=== PATIENT | male | born 1990 | race Two or more races ===

== ENCOUNTER 2020-10-12 14:19 | Emergency (ER) | payer SELFPAY ==
[~2020-10-12] VITALS: Ht 157.5 cm; Wt 88.0 kg
[2020-10-12 18:22] VITALS: BP 153/82
--- NOTE | 2020-10-12 19:24 | PHYS DOC ---
Past Medical History Past Medical History: No Pertinent History Past Surgical History: No Surgical History Smoking Status: Never Smoker Alcohol Use: None Drug Use: None General Adult EDM: Chief Complaint: FOOT INJURY PAIN Problems: (1) Left foot pain HPI: HPI: 30-year-old male presents to the emergency department with 11 days of left foot pain after a fall off a roof while he was working on the roof 11 days ago while he was in [facility]. He was evaluated in an emergency department in [place] and was diagnosed with a broken foot. He states his pain is continued today without any further trauma or injuries reported. He was given a cam boot but did not have it on him he has been mobilizing with crutches. Denies any further complaints or trauma. The patient denies nausea, vomiting, fever, chills, chest pain, shortness of breath, abdominal pain, urinary symptoms, cough, or any other complaints. Review of Systems: Review of Systems: Review of systems is otherwise negative except for what was mentioned in the HPI Heart Score: C/O Chest Pain: No Physical Exam: PE: Constitutional: No acute distress, non-toxic appearance. HENT: Atraumatic, bilateral external ears normal, nose normal. Eyes: PERRLA, EOMI, conjunctiva normal, no discharge. Neck: Normal range of motion, supple, no stridor. Cardiovascular: Heart rate regular rhythm. 2+ dorsalis pedis pulses Lungs & Thorax: No respiratory distress, symmetrical expansion. Bilateral breath sounds clear to auscultation Abdomen: Soft, no tenderness Back: There is no CT or L spinal tenderness paravertebral lumbar tenderness is noted Skin: Warm, dry. Extremities: Left foot swelling with tenderness to the dorsal aspect of the foot. Neurologic: Alert and oriented X 3, normal motor function, normal sensory function, no focal deficits noted. Non ataxic gait. GCS 15. Psychologic: Affect normal, judgment normal, mood normal. Current Patient Data: Vital Signs: Vital Signs Date Time Temp Pulse Resp B/P (MAP) Pulse Ox O2 Delivery O2 Flow Rate FiO2 10/12/20 18:22 98.6 72 14 153/82 99 98.6 Radiology/Procedures: Radiology/Procedures: PROCEDURE: FOOT LEFT 3V XR FOOT_LEFT 3 VIEWS History: Fall from roof Comparison: None. Technique: 3 views the left foot. Findings: Osseous mineralization is normal. There are transverse comminuted fractures of the second, third and fourth metatarsals at the distal metadiaphyses. No significant degenerative changes. Question lateral displacement of the proximal third metatarsal on the oblique view. Diffuse soft tissue swelling. Impression: 1. Transverse comminuted fractures of the second third and fourth metatarsals at the distal metadiaphyses. 2. Question lateral displacement of the proximal third metatarsal on the oblique view. This may represent Lisfranc injury. Electronically signed by: Scottie Cervantes MD (10/12/2020 7:41 PM) PROCEDURE: LUMBAR SPINE 2-3V XR LUMBAR SPINE 2-3V History: Back pain, fall from roof. Comparison: None. Technique: 3 views of the lumbar spine. Findings: There are 5 non-rib bearing lumbar vertebral segments. There are wedge compression deformities of the L1 and L4 vertebral bodies with buckling of the anterior cortex. The posterior cortex seem to be normally aligned. No spondylolisthesis. No destructive osseous lesions are seen. No significant facet disease. Disc spaces are preserved. Sacroiliac joints are unremarkable. Soft tissues are unremarkable. IMPRESSION: 1. Anterior wedge compression deformities of the L1 and L4 vertebral bodies. The posterior cortex is apparent intact without retropulsion, however recommend CT of the lumbar spine for further evaluation. Electronically signed by: Scottie Cervantes MD (10/12/2020 7:43 PM) Course & Med Decision Making: Course & Med Decision Making Foot x-ray as noted above. Patient was discharged in stable condition with advice to follow-up with orthopedic surgeon Patient was given neurosurgery follow up for back fractures, does not appear to have spinal cord involvement as patient is minimally symptomatic, neurologically intact Departure Departure Impression: Primary Impression: Foot fracture, left Additional Impression: Lumbar compression fracture Disposition: 01 HOME / SELF CARE / HOMELESS Condition: STABLE Referrals: NO PCP (PCP) GERRI NESBITT MD, TIMOTHY J MD Additional Instructions: You may utilize something called the "RICE" protocol (Rest, Ice, Compresses, Elevation) to help alleviate your pain: ? Hold off on doing intense exercise that may make the pain worse. Sometimes gentle stretching can provide relief, but be careful to avoid further injury. It is important to perform gentle range of motion exercises to prevent stiff joints and chronic pain. ? Use ice packs over the affected area to help decrease your pain. Ice can work as a numbing agent over your painful area. For the first 24 hours, apply ice 2-4 times per day for a maximum 15-20 minutes each time. Ice should be in a plastic bag. ? You may use warm compresses to help improve blood flow and decrease swelling. Alternating with ice packs and warm compresses works well. ? You may elevate the affected area to help improve drainage and reduce swelling, which will also help your pain. Your x-rays today showed a fracture of the left foot along with possible fractures of the back. You will need further evaluation with a neurosurgeon, I attached Dr. Nesbitt's information for you to follow-up in the clinic. Please call for an appointment KENYON HEREDIA DO Oct 12, 2020 19:24
[2020-10-12] MEDS ORDERED: HYDROcodone/APAP 5/325MG 1 TAB TABLET PO ONE (19:30)
--- NOTE | 2020-10-12 19:44 | RAD ---
XR FOOT_LEFT 3 VIEWS History: Fall from roof Comparison: None. Technique: 3 views the left foot. Findings: Osseous mineralization is normal. There are transverse comminuted fractures of the second, third and fourth metatarsals at the distal metadiaphyses. No significant degenerative changes. Question lateral displacement of the proximal third metatarsal on the oblique view. Diffuse soft tissue swelling. Impression: 1. Transverse comminuted fractures of the second third and fourth metatarsals at the distal metadiap hyses. 2. Question lateral displacement of the proximal third metatarsal on the oblique view. This may repr esent Lisfranc injury. Electronically signed by: Scottie Cervantes MD (10/12/2020 7:41 PM) [facility]
--- NOTE | 2020-10-12 19:46 | RAD ---
XR LUMBAR SPINE 2-3V History: Back pain, fall from roof. Comparison: None. Technique: 3 views of the lumbar spine. Findings: There are 5 non-rib bearing lumbar vertebral segments. There are wedge compression deformities of the L1 and L4 vertebral bodies with buckling of the anteri or cortex. The posterior cortex seem to be normally aligned. No spondylolisthesis. No destructive osseous lesions are seen. No significant facet disease. Disc spaces are preserved. Sacroiliac joints are unremarkable. Soft tissues are unremarkable. IMPRESSION: 1. Anterior wedge compression deformities of the L1 and L4 vertebral bodies. The posterior cortex is apparent intact without retropulsion, however recommend CT of the lumbar spine for further evaluatio n. Electronically signed by: Scottie Cervantes MD (10/12/2020 7:43 PM) [facility]
== END 2020-10-12 20:45 | disposition home or self-care (01) ==
LOC: ER 14:19
DX: S92.322A Displaced fracture of second metatarsal bone, left foot, initial encounter for closed fracture (principal); S92.332A Displaced fracture of third metatarsal bone, left foot, initial encounter for closed fracture; S92.342A Displaced fracture of fourth metatarsal bone, left foot, initial encounter for closed fracture; S32.010A Wedge compression fracture of first lumbar vertebra, initial encounter for closed fracture; S32.040A Wedge compression fracture of fourth lumbar vertebra, initial encounter for closed fracture; W13.2XXA Fall from, out of or through roof, initial encounter; Y93.89 Activity, other specified; Y92.89 Other specified places as the place of occurrence of the external cause; Y99.8 Other external cause status
CPT/HCPCS: 72100; 73630; 99284